=== PATIENT | male | born 1970 | race Caucasian/White ===

== ENCOUNTER 2017-10-09 21:38 | Emergency (ER) | payer OTHER ==
[2017-10-09 22:07] LABS: ADD MAN DIFF? NO
[2017-10-09 22:10] LABS: BASO % 1 % (0-3); EOS # 0.2 x10^3/uL (0.0-0.7); EOS % 3 % (0-3); HEMATOCRIT 49.2 % (39.0-53.0); HEMOGLOBIN 17.2 g/dL (13.0-17.5); LYMPH % 17 % (24-48); MEAN CORPUSCULAR HEMOGLOBIN 33 pg (25-35); MEAN CORPUSCULAR HGB CONC 35 g/dL (31-37); MEAN CORPUSCULAR VOLUME 94 fL (79-100); MONO # 0.7 x10^3/uL (0.0-1.1); MONO % 11 % (0-9); NEUT # 4.2 x10^3uL (1.8-7.7); NEUT % 69 % (31-73); PLATELET COUNT 203 x10^3/uL (140-400); RED BLOOD COUNT 5.26 x10^6/uL (4.30-5.70); RED CELL DISTRIBUTION WIDTH 12.6 % (11.5-14.5); WHITE BLOOD COUNT 6.1 x10^3/uL (4.0-11.0)
[2017-10-09] MEDS: IV NORMAL SALINE 1000ML BAG 1,000 ML IV (22:15)
[2017-10-09] MEDS: fentaNYL PF VIAL 100 MCG/2 ML VIAL IV (22:15)
[2017-10-09 22:19] LABS: ANION GAP 12 (6-14); BLOOD UREA NITROGEN 23 mg/dL (8-26); BUN/CREATININE RATIO 19 (6-20); CALCIUM 9.2 mg/dL (8.5-10.1); CARBON DIOXIDE 23 mmol/L (21-32); CHLORIDE 105 mmol/L (98-107); CREATININE 1.2 mg/dL (0.7-1.3); GFR 65.2; GLUCOSE 98 mg/dL (70-99); POTASSIUM 4.2 mmol/L (3.5-5.1); SODIUM 140 mmol/L (136-145)
[2017-10-09] MEDS ORDERED: ONDANSETRON PF 4 MG/2 ML VIAL. (22:23)
[2017-10-09 22:24] LABS: ALBUMIN 4.1 g/dL (3.4-5.0); ALBUMIN/GLOBULIN RATIO 1.1 (1.0-1.7); ALK PHOS 79 U/L (46-116); ALT (SGPT) 31 U/L (16-63); AST (SGOT) 24 U/L (15-37); CREATINE KINASE 154 U/L (39-308); TOTAL BILIRUBIN 0.6 mg/dL (0.2-1.0); TOTAL PROTEIN 7.7 g/dL (6.4-8.2)
[2017-10-09] MEDS: ONDANSETRON PF 4 MG/2 ML VIAL. IV (22:26)
[2017-10-09] MEDS: MORPHINE SULFATE 10 MG/ML VIAL. IV (22:27)
[2017-10-09 22:48] LABS: LACTIC ACID 2.4 mmol/L (0.4-2.0)
[2017-10-09] MEDS ORDERED: IV NORMAL SALINE 1000ML BAG 1,000 ML IV (23:27)
[2017-10-09] MEDS ORDERED: fentaNYL PF VIAL 100 MCG/2 ML VIAL IV (23:30)
[2017-10-09] MEDS ORDERED: ONDANSETRON PF 4 MG/2 ML VIAL. IV (23:30)
[2017-10-09] MEDS ORDERED: KETOROLAC 30 MG/ML INJ. (23:37)
[2017-10-09] MEDS: KETOROLAC 30 MG/ML INJ. IV (23:41)
== END 2017-10-10 00:40 | disposition home or self-care (01) ==
LOC: ER 10-10 00:40
DX: S80.12XA Contusion of left lower leg, initial encounter (principal); Z88.5 Allergy status to narcotic agent; W20.8XXA Other cause of strike by thrown, projected or falling object, initial encounter; Y93.89 Activity, other specified; Y92.89 Other specified places as the place of occurrence of the external cause; Y99.8 Other external cause status
CPT/HCPCS: 36415; 73502; 73552; 80053; 82550; 83605; 85025; 93005; 93922; 96374; 96375; 99285-25; J1885; J2270; J2405; J3010; J7030

== ENCOUNTER → 2018-04-14 | Outpatient (CLI) | payer OTHER ==
[2017-05-08 11:00] VITALS: BP 104/63
[~2018-04-14] MED LIST: HYDR-3164 PO; IOHEXOL 180 MG/ML 10 ML VIAL. ONE; MOXI400T PO; OMEP20TA63 PO; ONDA4TAB12 PO; PRED20TA PO; methylPREDNISolone ACETATE 40 MG/ML VIAL. ONE; methylPREDNISolone ACETATE 80 MG/ML VIAL. ONE
--- NOTE | 2018-04-14 13:04 | PAIN ---
DATE OF SERVICE: 04/14/2018 DIAGNOSES: Lumbar radiculopathy with lumbar degenerative disk disease and lumbar post-laminectomy syndrome. HISTORY OF PRESENT ILLNESS: The patient is a 47-year-old male who returns for followup, last seen on 05/08/2017 as an inpatient. The patient had a caudal approach epidural steroid injection for low back and bilateral lower extremity pain. The patient reports he had 100% improvement for almost 1 year, it came back about 3 weeks ago. Pain has been returning in the low back into the posterior gluteus, posterior thighs, radiating to the leg, into the lower leg with numbness, more on the left side at this time, but present bilaterally. The patient reports it is a stabbing pain, dull, shooting, radiating, becoming more constant, aching, sharp, shooting and becoming more severe, more unbearable, worse with walking, standing, change in positions, some mild fatigue and weakness in his left leg with walking more than 10 minutes or so, better with sitting or lying down, does not awaken him from sleep generally, but has over the past 3 weeks. The patient reports he initially increased his walking, doing work activities, household activities, traveling with greater ease and comfort and essentially was 100% improved for almost 1 year. The patient reports his pain now is a 10 on scale of 10 at its worst, 8 on average, 6 at its least and is an 8 today. The patient reports no new motor or sensory deficits, no new bowel or bladder incontinence, but still significant pain radiating into the lower extremities, more of an L5-S1 dermatomal distribution, again more on the left than the right. PHYSICAL EXAMINATION: VITAL SIGNS: Today, the patient's blood pressure is 132/86, pulse 78, respirations 18, temperature is 97.8 degrees Fahrenheit, height is 67 inches, weight is 239 pounds. GENERAL: The patient is awake, alert, oriented, appropriate, very pleasant demeanor. HEENT: Head shows normocephalic, atraumatic. Extraocular movements intact and symmetrical. Oral cavity: Mucous membranes moist and pink. Dentition is intact. NECK: Shows anterior throat supple without palpable lymphadenopathy noted. Swallow reflex symmetrical. CHEST: Shows normal with inspection. Breath sounds clear to auscultation bilaterally. HEART: Shows S1, S2 clear. No murmurs auscultated. ABDOMEN: Soft, nontender, nondistended. The patient shows no organomegaly. No rebound or guarding. BACK: Shows spine grossly in the midline. Normal appearing thoracic kyphosis and minor flattening of lumbar lordotic curvature. Well-healed surgical scar noted. Lumbar paraspinous muscle shows symmetrical on inspection, with palpation shows some moderate tenderness, but only diffusely in the low lumbar distribution bilaterally. The patient shows no tenderness over the sacrum or sacroiliac regions. Good rotational motion both laterally as well as extension and flexion without significant pain reported. EXTREMITIES: Lower extremities show deep tendon reflexes 2+ in the patellar, 1+ tendo calcaneus tendons. Motor exam is strong with 5/5 on the right, 4/5 on the left with dorsiflexion and extension and 5/5 quadriceps and hamstring flexion bilaterally. Peripheral pulses are 1+ posterior tibia. No peripheral edema is noted. The patient does have mild straight leg raise at about 45 degrees on the left side only that is decreased with knee flexion. Gaenslen and Yefri maneuvers are negative bilaterally. The patient is able to stand, stand on his toes without difficulty or loss of balance, walks with a normal appearing gait for short distance, not using any assistive devices. Options were discussed with the patient. The patient's old chart was reviewed, as his current medication regimen updated. Current review of systems updated today as well. We will preauthorize the patient for a caudal approach epidural steroid injection. He did very well with this in the past, with return of radicular pain in L5-S1 dermatomal distribution, left greater than right, but present bilaterally. The patient continued to do his stretching and strengthening exercises. We encouraged him to do this and maintain as best he can as well as walking which he tries to do daily, although the pain is limiting it significantly. He will try to maintain these activities. We will have him preauthorize, have him return for a caudal approach epidural steroid injection once approval is obtained. EVAN CARIAS MD DR: VIVIANA/juanjose JOB#: [id number] / [id number]
--- NOTE | 2018-04-14 18:30 | PAIN ---
DATE OF SERVICE: 04/14/2018 ADDENDUM FOR PROGRESS NOTE FOR PAIN CLINIC FOR EARLIER THIS MORNING. HISTORY OF PRESENT ILLNESS: The patient is a 47-year-old male we were able to get preauthorization over the phone from his insurance provider and the patient was contacted to return for a caudal epidural steroid injection today. The patient is very happy that it came down today with pain in the low back and into the left lower extremity greater than right, but present bilaterally. The patient reports no changes, still history of doing 100% better for approximately 1 year after his last injection, which was on 05/08/2017. The patient reports no changes. I would like to proceed with a caudal epidural steroid injection today. We discussed the risks including, but not limited to, bleeding, infection, possibility of epidural hematoma and subsequent neurological compromise, dural puncture headaches, spinal cord and/or nerve damage, side effects of steroid medication and poor results regarding pain control. The patient understands and wished to proceed. The patient will return to clinic in approximately 2 weeks for followup, was counseled as to his return appointment, activity level and side effects to be aware of. DIAGNOSIS: Lumbar radiculopathy with lumbar degenerative disk disease, post-lumbar laminectomy syndrome. PROCEDURE: Caudal approach epidural steroid injection #1 in the series with fluoroscopic guidance under sterile prep and drape using local anesthetic. MEDICATION INJECTED: A total of 120 mg of Depo-Medrol plus 10 mL of preservative-free normal saline and 2 mL of Isovue for contrast. CONDITION AT DISCHARGE: Stable. The patient tolerated the procedure well, had no complications. EVAN CARIAS MD DR: VIVIANA/juanjose JOB#: [id number] / [id number]
== END | disposition home or self-care (01) ==
LOC: PNCL 07:50
PROVIDERS: ATTEND Anesthesiology
DX: M51.16 Intervertebral disc disorders with radiculopathy, lumbar region (principal); M96.1 Postlaminectomy syndrome, not elsewhere classified; Z88.5 Allergy status to narcotic agent; K21.9 Gastro-esophageal reflux disease without esophagitis; Z98.890 Other specified postprocedural states; Z79.899 Other long term (current) drug therapy
CPT/HCPCS: 62323; J1030; J1040; Q9965

== ENCOUNTER → 2018-09-15 | Outpatient (CLI) | payer OTHER ==
[2017-05-08 11:00] VITALS: BP 104/63
[~2018-09-15] MED LIST changes: -IOHEXOL 180 MG/ML 10 ML VIAL. ONE; -methylPREDNISolone ACETATE 40 MG/ML VIAL. ONE; -methylPREDNISolone ACETATE 80 MG/ML VIAL. ONE
--- NOTE | 2018-09-16 00:20 | PAIN ---
DATE OF SERVICE: 09/15/2018 DIAGNOSES: Lumbar radiculopathy with lumbar degenerative disk disease and lumbar post-laminectomy syndrome. HISTORY OF PRESENT ILLNESS: The patient is a 47-year-old male who returns for followup status post caudal epidural steroid injection x 2, most recently on 04/14/2018. The patient did very well with 90% improvement for about 4-1/2 months. The patient reports pain is returning now, not to the level it was at baseline, but still radiating into the posterior gluteus, posterior thigh on the left side, left posterior calf and foot with some numbness and tingling. The patient reports it is across the low back as well as some tingling, sharp and shooting pain in the leg and aching and dull in the back. The patient reports it is a 10 on a scale of 10 at its worst, 8 on average, 4 at its least and is an 8 today. The patient reports it has been returning. Initially, he was doing great with increased distance walking, doing work activities, household activities, travelling with greater ease and comfort, now for the past 2 weeks or so, the pain has been returning, waking him from sleep on and off, but not every night, usually about every 4-5 hours he is awakened from it. The patient reports no new motor or sensory deficits. No new bowel or bladder incontinence or other complaints. The patient has been doing physical therapy on his own for about 6 months now and since prior to his last injection and is doing stretching and strengthening exercises, also using an inversion table and some traction devices and has been doing this for 6-7 months as well. The patient reports it helps to some extent, but had not decreased the pain long-term and states it tends to get worse when he is on his feet more, especially at work. PHYSICAL EXAMINATION: VITAL SIGNS: The patient's blood pressure 123/80, pulse 63, respirations 16, temperature 98.2 degrees Fahrenheit, height is 6 feet 2 inches and weight is 247 pounds. GENERAL: The patient is awake, alert, oriented, appropriate, very pleasant demeanor. HEENT: Shows normocephalic, atraumatic. Extraocular movements are intact and symmetrical. Oral cavity: Mucous membranes are moist and pink. Dentition is intact. NECK: Shows anterior throat supple without palpable lymphadenopathy noted. Swallow reflex is symmetrical. CHEST: Shows normal on inspection. Breath sounds are clear to auscultation bilaterally. HEART: Shows S1, S2 clear. No murmurs auscultated. ABDOMEN: Soft, nontender, nondistended. No palpable organomegaly is noted. No rebound or guarding demonstrated. BACK: Shows spine grossly in the midline, normal appearing thoracic kyphosis, some minor flattening of lumbar lordotic curvature with well-healed surgical scar noted. Lumbar paraspinous muscle shows symmetrical on inspection. On palpation shows some moderate tenderness diffusely throughout the upper, middle and lower distribution of paraspinous muscles bilaterally, but only diffusely without radiation. The patient has good rotational motion both laterally greater than 10 degrees right and left as well as extension greater than 10 degrees, forward flexion at 45 degrees, without significant pain reported. EXTREMITIES: Lower extremities show deep tendon reflexes at 2+ in the patellar, 1+ tendo calcaneus tendons. Motor exam is approximately 4 on a scale of 5 on the left and 5/5 on the right with dorsiflexion, extension, quadriceps and hamstring flexion. Peripheral pulses are 1+ posterior tibia. No peripheral edema is noted. He does have a mild positive straight leg raise on the left side about 45 degrees, decreased with knee flexion. Right side is negative. Options were discussed with the patient. The patient's old chart was reviewed as was his current medication regimen updated. Current review of systems is updated today as well. We will preauthorize the patient for a caudal epidural steroid injection, the first in this series as he has done very well with these in the past with about 90% improvement with his L5-S1 radiculopathy on the left side and previous surgery. The patient will continue with exercise, stretching and strengthening, inversion table as tolerated. In the meantime, we will wait for preauthorization and have him return for caudal approach epidural steroid injection at that time. EVAN CARIAS MD DR: VIVIANA/juanjose JOB#: [id number] / [id number]
== END | disposition home or self-care (01) ==
LOC: PNCL 08:40
PROVIDERS: ATTEND Anesthesiology
DX: M51.16 Intervertebral disc disorders with radiculopathy, lumbar region (principal); M96.1 Postlaminectomy syndrome, not elsewhere classified
CPT/HCPCS: G0463

== ENCOUNTER → 2018-10-16 | Outpatient (CLI) | payer OTHER ==
[2017-05-08 11:00] VITALS: BP 104/63
[~2018-10-16] MED LIST changes: +IOHEXOL 180 MG/ML 10 ML VIAL. ONE; +methylPREDNISolone ACETATE 40 MG/ML VIAL. ONE; +methylPREDNISolone ACETATE 80 MG/ML VIAL. ONE
--- NOTE | 2018-10-17 01:14 | PAIN ---
DATE OF SERVICE: 10/16/2018 PROGRESS NOTE FOR PAIN CLINIC DIAGNOSES: Lumbar radiculopathy with lumbar degenerative disk disease and post-lumbar laminectomy syndrome. HISTORY OF PRESENT ILLNESS: The patient is a 47-year-old male who returns for followup status post lumbar caudal epidural steroid injections, last seen for injection on 04/14/2018. The patient was about 90% better until about the last 3 weeks or so the patient reports the pain is returning in the low back, left lower extremity, posterior gluteus, posterior thigh, posterior calf, as it was previously with activity, walking, standing, change in positions. The patient reports it is aching and radiating; describes it as 8 on a scale of 10 at its worst in the past week, 6 on average and 3 at its least and is 6 today. The patient reports no new motor or sensory deficits. Initially he had increased his distance walking, doing work activities, doing household activities, travelling with greater ease and comfort without difficulty. Now the pain is returning in the low back, left lower extremity as noted. The patient reports no new motor or sensory deficits, no new bowel or bladder incontinence or other complaints. PHYSICAL EXAMINATION: VITAL SIGNS: The patient's blood pressure is 129/85, pulse 69, respirations 18, temperature is 97.9 degrees Fahrenheit, height is 6 feet 2 inches, weight is 233 pounds. GENERAL: The patient is awake, alert, oriented, appropriate, very pleasant demeanor. HEENT: Head is normocephalic, atraumatic. Extraocular movements are intact and symmetrical. Oral cavity: Mucous membranes moist and pink. Dentition is intact. NECK: Shows anterior throat supple without palpable lymphadenopathy noted. Swallow reflex symmetrical. CHEST: Shows normal on inspection. Breath sounds clear to auscultation bilaterally. HEART: Shows S1, S2 clear. No murmurs auscultated. ABDOMEN: Soft, nontender, nondistended. No palpable organomegaly is noted. No rebound or guarding demonstrated. BACK: Shows spine grossly in the midline. Normal-appearing thoracic kyphosis and slightly flattened lumbar lordotic curvature with well-healed surgical scar in the lumbar distribution. Lumbar paraspinous muscle shows symmetrical on inspection. Palpation shows some moderate tenderness diffusely bilaterally, but only diffusely without radiation. The patient has good rotational motion of lumbar spine, both laterally as well as extension and flexion without difficulty. EXTREMITIES: The patient's lower extremities show deep tendon reflexes at 2+ in the patellar, 1+ tendo-calcaneus tendons. Motor exam is approximately 4 on a scale 5 in the left dorsiflexion and extension, 5/5 on the right. Peripheral pulses are 1+ posterior tibia. No peripheral edema is noted bilaterally. Options were discussed with the patient. The patient's old chart was reviewed as was her current medication regimen updated. Current review of systems updated today as well. We will proceed with a caudal approach epidural steroid injection today with fluoroscopic guidance as the first in this series. Risks were again discussed including, but not limited to bleeding, infection, possibility of epidural hematoma and subsequent neurological compromise, dural puncture, headaches, spinal cord and/or nerve damage, side effects of steroid medication and poor results regarding pain control. The patient understands and wished to proceed. The patient will return to clinic in approximately 2 weeks for followup, was counseled as to return appointment, activity level and side effects to be aware of. DIAGNOSIS: Lumbar radiculopathy with lumbar degenerative disk disease, post-lumbar laminectomy syndrome. PROCEDURE: Lumbar epidural steroid injection, caudal approach using C-arm fluoroscopic guidance under sterile prep and drape using local anesthetic. MEDICATION INJECTED: A total of 120 mg Depo-Medrol plus 10 mL of preservative-free normal saline and 2 mL of contrast. CONDITION AT DISCHARGE: Stable. The patient tolerated the procedure well, had no complications. EVAN CARIAS MD DR: VIVIANA/juanjose JOB#: [id number] / [id number]
== END ==
LOC: PNCL 07:27
PROVIDERS: ATTEND Anesthesiology
DX: M51.16 Intervertebral disc disorders with radiculopathy, lumbar region (principal); M96.1 Postlaminectomy syndrome, not elsewhere classified
CPT/HCPCS: 62323; J1030; J1040; Q9965